=== PATIENT | female | born 1960 | race African-American/Black ===

== ENCOUNTER 2017-03-24 21:06 | Emergency (ER) | payer OTHER ==
[~2017-03-24] VITALS: Ht 167.6 cm; Wt 75.3 kg
[2017-03-24 21:11] VITALS: BP 120/78
[2017-03-24] MEDS ORDERED: METF500T PO (21:47)
--- NOTE | 2017-03-24 22:04 | NUR ---
PT TAKEN TO BED EDGI
--- NOTE | 2017-03-24 22:15 | NUR ---
Dr. Jimenez evaluating patient at bedside.
--- NOTE | 2017-03-24 22:22 | NUR ---
56/F c/o headache to right temporal side, stabbing, constant, 10/10. Pt also c/o cough, nausea, denies vomiting. Lungs clear bilaterally. Pt states the headache is worse when she changes positions suddenly. AOX4, clear speech. Non productive cough noted. Afebrile. VSS. Hx HTN, DM. Friend at bedside. Pt states she had a mass removed from her back a week ago and is also c/o pain to surgery site.
[2017-03-24] MEDS ORDERED: MORPHINE SULFATE 4 MG/ML SYR IVP ONE (22:25)
[2017-03-24] MEDS ORDERED: ONDANSETRON 4 MG/2 ML VIAL IVP ONE (22:25)
--- NOTE | 2017-03-24 22:32 | NUR ---
X-Ray at bedside.
--- NOTE | 2017-03-24 23:03 | NUR ---
Pt ambulated to restroom to provide UA.
[2017-03-24 23:07] LABS: BASOPHILS # (AUTO) 0.3 K/uL (0.00-0.22); BASOPHILS % (AUTO) 2.4 % (0.0-2.0); EOSINOPHILS # (AUTO) 0.1 K/uL (0-0.4); EOSINOPHILS % (AUTO) 0.8 % (0.0-4.0); HEMATOCRIT 31.2 % (36-48); HEMOGLOBIN 10.4 g/dL (12.0-16.0); LYMPHOCYTES # (AUTO) 1.9 K/uL (2.5-16.5); LYMPHOCYTES % (AUTO) 15.7 % (20.5-51.1); MEAN CORPUSCULAR HEMOGLOBIN 29 pg (27-31); MEAN CORPUSCULAR HGB CONC 33 g/dL (33-37); MEAN CORPUSCULAR VOLUME 88 fL (80-94); MONOCYTES # (AUTO) 1.1 K/uL (0.8-1.0); MONOCYTES % (AUTO) 8.5 % (1.7-9.3); NEUTROPHILS % (AUTO) 72.6 % (42.2-75.2); PLATELET COUNT (AUTO) 271 K/uL (140-450); RED BLOOD CELL COUNT(AUTO) 3.56 MIL/uL (4.20-5.40); RED CELL DISTRIBUTION WIDTH 13.1 % (11.6-13.7); WHITE BLOOD COUNT (AUTO) 12.4 K/uL (4.8-10.8)
--- NOTE | 2017-03-24 23:19 | NUR ---
PT TAKEN TO CT
[2017-03-24 23:25] LABS: ALBUMIN 3.7 g/dL (3.4-5.0); ANION GAP 14.8 (8-16); CARBON DIOXIDE 24.9 mmol/L (21-32); CREATININE 0.8 mg/dL (0.6-1.3); TOTAL BILIRUBIN 1.2 mg/dL (0.0-1.0)
--- NOTE | 2017-03-24 23:27 | NUR ---
Pt returned from CT and placed in GI
[2017-03-24 23:29] LABS: POTASSIUM 2.7 mmol/L (3.5-5.1)
[2017-03-24 23:34] LABS: APPEARANCE,URINE SL CLOUDY (CLEAR); BILIRUBIN,URINE NEGATIVE (NEGATIVE); BLOOD, URINE NEGATIVE (NEGATIVE); COLOR,URINE YELLOW (YELLOW); LEUKOCYTE ESTERASE ,URINE 1+ (NEGATIVE); NITRITE, URINE NEGATIVE (NEGATIVE); UGLUCOSE NEGATIVE (NEGATIVE)
--- NOTE | 2017-03-24 23:34 | NUR ---
Pt c/o 04/14, no improvement after medications. Dr. Jimenez made aware.
[2017-03-24] MEDS ORDERED: KCL 20 MEQ/WATER INJ PREMIX 100 ML IV ONE (23:35)
[2017-03-24 23:45] LABS: CREATINE KINASE MB 1.8 ng/mL (0-3.6)
[2017-03-24 23:47] LABS: RBC,URINE 0-5 (RARE) /HPF (0-5)
[2017-03-25] MEDS ORDERED: POTASSIUM CHLORIDE 10 MEQ TABER PO ONE (00:05)
[2017-03-25] MEDS ORDERED: KETOROLAC 30 MG/ML VIAL IVP ONE (00:20)
[2017-03-25] MEDS ORDERED: cefTRIAXone 1,000 MG in LIDOCAINE 1% ED 2.1 ML IM ONE (00:20)
--- NOTE | 2017-03-25 00:53 | NUR ---
IV removed, catheter intact and site benign. Applied folded 4x4 gauze and tape to stop bleeding.
[2017-03-25 01:00] VITALS: BP 139/79
--- NOTE | 2017-03-25 01:00 | NUR ---
Patient discharged with v/s stable. Written and verbal after care instructions given and explained. Patient alert, oriented and verbalized understanding of instructions. Ambulatory with steady gait. All questions addressed prior to discharge. ID band removed. Patient advised to follow up with PMD. Rx of [place] 5mg-325mg, Potassium Chloride 20 mEq, and Levaquin 500mg given. Patient educated on indication of medication including possible reaction and side effects. Opportunity to ask questions provided and answered.
== END 2017-03-25 01:00 | disposition home or self-care (01) ==
LOC: MED 21:06
DX: J18.9 Pneumonia, unspecified organism (principal); E87.6 Hypokalemia; E11.9 Type 2 diabetes mellitus without complications; I10 Essential (primary) hypertension; F17.210 Nicotine dependence, cigarettes, uncomplicated
CPT/HCPCS: 36415; 70450; 71010; 80053; 81001; 82550; 82553; 82948; 84484; 85025; 87086; 93005; 96372; 96374; 96375; 99285; J0696; J1885; J2001; J2270; J2405; J3480; J7030; Q0092

== ENCOUNTER 2018-06-23 14:49 | Emergency (ER) | payer OTHER ==
[~2018-06-23] VITALS: Ht 167.6 cm; Wt 70.8 kg
[~2018-06-23 14:49] MED LIST: METF500T PO
[2018-06-23 14:55] VITALS: BP 126/73
--- NOTE | 2018-06-23 15:04 | NUR ---
Patient ambulated to bed 5. RN evaluating patient at bedside.
--- NOTE | 2018-06-23 15:27 | NUR ---
Dr. Andrews evaluating patient at bedside.
--- NOTE | 2018-06-23 15:43 | NUR ---
BLOOD DRAW TAKEN TO LAB AT THIS TIME.
--- NOTE | 2018-06-23 15:44 | NUR ---
BIB SELF C/O SORE THROAT X 3 DAYS. PT STATES SHE ALSO HAS COUGH WITH TIGHTNESS AT THE CHEST. -N/V/D. DENIES N/V/D; SKIN IS PINK/WARM/DRY; AAOX4 WITH EVEN AND STEADY GAIT; LUNGS CLEAR BL; HR EVEN AND REGULAR; PT DENIES ANY FEVER, CP, SOB, AT THIS TIME; PATIENT STATES PAIN OF 0/10 AT THIS TIME; VSS; PATIENT POSITIONED FOR COMFORT; HOB ELEVATED; BEDRAILS UP X2; BED DOWN. ER MD MADE AWARE OF PT STATUS.
[2018-06-23] MEDS ORDERED: NACL 0.9% 1,000 ML IV ONE ×2 (15:45→17:20)
[2018-06-23 16:11] LABS: BASOPHILS % (AUTO) 0.3 % (0.0-2.0); EOSINOPHILS # (AUTO) 0.1 K/uL (0-0.4); EOSINOPHILS % (AUTO) 0.9 % (0.0-4.0); HEMATOCRIT 35.8 % (36-48); HEMOGLOBIN 11.9 g/dL (12.0-16.0); LYMPHOCYTES # (AUTO) 1.8 K/uL (2.5-16.5); LYMPHOCYTES % (AUTO) 26.2 % (20.5-51.1); MEAN CORPUSCULAR HEMOGLOBIN 29 pg (27-31); MEAN CORPUSCULAR HGB CONC 33 g/dL (33-37); MEAN CORPUSCULAR VOLUME 87.9 fL (80-94); MONOCYTES # (AUTO) 0.4 K/uL (0.8-1.0); MONOCYTES % (AUTO) 6.2 % (1.7-9.3); NEUTROPHILS # (AUTO) 4.6 K/uL (1.8-7.7); NEUTROPHILS % (AUTO) 66.4 % (42.2-75.2); PLATELET COUNT (AUTO) 169 K/uL (140-450); RED BLOOD CELL COUNT(AUTO) 4.08 MIL/uL (4.20-5.40); RED CELL DISTRIBUTION WIDTH 13.4 % (11.6-13.7)
[2018-06-23 16:20] LABS: ALBUMIN 3.8 g/dL (3.4-5.0); ANION GAP 11.8 (8-16); CARBON DIOXIDE 28.4 mmol/L (21-32); CREATININE 1.2 mg/dL (0.6-1.3); POTASSIUM 4.2 mmol/L (3.5-5.1); TOTAL BILIRUBIN 1.2 mg/dL (0.0-1.0)
[2018-06-23] MEDS ORDERED: INSULIN REGULAR, HUMAN 100 UNIT/ML VIAL SUBQ ONE ×2 (17:20→18:40)
--- NOTE | 2018-06-23 18:34 | NUR ---
Dr. Andrews re-evaluating patient at bedside.
[2018-06-23 19:58] VITALS: BP 131/86
--- NOTE | 2018-06-23 19:58 | NUR ---
Patient discharged with v/s stable. Written and verbal after care instructions given and explained. Patient alert, oriented and verbalized understanding of instructions. Ambulatory with steady gait. All questions addressed prior to discharge. ID band removed. Patient advised to follow up with PMD. Rx of Naprosyn and Tessalon given. Patient educated on indication of medication including possible reaction and side effects. Opportunity to ask questions provided and answered.
== END 2018-06-23 19:58 | disposition home or self-care (01) ==
LOC: MED 14:49
DX: E11.9 Type 2 diabetes mellitus without complications (principal); B34.9 Viral infection, unspecified; I10 Essential (primary) hypertension; F17.200 Nicotine dependence, unspecified, uncomplicated; Z79.84 Long term (current) use of oral hypoglycemic drugs
CPT/HCPCS: 36415; 71045; 80053; 81002; 82948; 83605; 85025; 87040; 87804; 93005; 96360; 96361; 96372; 99284; J1815; J7030; Q0092

== ENCOUNTER 2019-06-09 21:54 | Emergency (ER) | payer OTHER ==
[~2019-06-09 21:54] MED LIST changes: +INSU-1163 SQ; +INSU100S22 SUBQ
[2019-06-12 20:00] LABS: POTASSIUM 4.1 mmol/L (3.5-5.1)
[2019-06-12 20:01] LABS: ANION GAP 12.7 (8-16); CARBON DIOXIDE 27.4 mmol/L (21-32)
[2019-06-12 20:02] LABS: CREATININE 0.9 mg/dL (0.6-1.3); TOTAL BILIRUBIN 0.7 mg/dL (0.0-1.0)
[2019-06-12 20:03] LABS: ALBUMIN 3.7 g/dL (3.4-5.0); CORRECTED WHITE BLOOD COUNT 5.2 K/uL (4.5-11.0); WHITE BLOOD COUNT (AUTO) 5.2 K/uL (4.8-10.8)
[2019-06-12 20:04] LABS: EOSINOPHILS % (AUTO) 1.8 % (0.0-4.0); HEMATOCRIT 36.7 % (36-48); HEMOGLOBIN 12.3 g/dL (12.0-16.0); LYMPHOCYTES % (AUTO) 26.2 % (20.5-51.1); MEAN CORPUSCULAR HEMOGLOBIN 29 pg (27-31); MEAN CORPUSCULAR HGB CONC 34 g/dL (33-37); MEAN CORPUSCULAR VOLUME 86.1 fL (80-94); MONOCYTES % (AUTO) 5.5 % (1.7-9.3); NEUTROPHILS % (AUTO) 65.9 % (42.2-75.2); PLATELET COUNT (AUTO) 190 K/uL (140-450); RED BLOOD CELL COUNT(AUTO) 4.26 MIL/uL (4.20-5.40)
[2019-06-12 20:05] LABS: BASOPHILS % (AUTO) 0.6 % (0.0-2.0); EOSINOPHILS # (AUTO) 0.1 K/uL (0-0.4); LYMPHOCYTES # (AUTO) 1.4 K/uL (2.5-16.5); MONOCYTES # (AUTO) 0.3 K/uL (0.8-1.0); NEUTROPHILS # (AUTO) 3.4 K/uL (1.8-7.7)
== END 2019-06-10 04:12 | disposition home or self-care (01) ==
LOC: MED 21:54
DX: R73.9 Hyperglycemia, unspecified (principal); I10 Essential (primary) hypertension; F17.210 Nicotine dependence, cigarettes, uncomplicated; E11.9 Type 2 diabetes mellitus without complications; Z79.84 Long term (current) use of oral hypoglycemic drugs; Z79.899 Other long term (current) drug therapy
CPT/HCPCS: 36415; 80053; 81002; 83690; 85025; 99283

== ENCOUNTER 2019-06-17 16:42 | Emergency (ER) | payer OTHER ==
[~2019-06-17] VITALS: Ht 167.6 cm; Wt 68.9 kg
[2019-06-17 17:15] VITALS: BP 108/63
--- NOTE | 2019-06-17 17:15 | NUR ---
TO BED # 11 AMBULATORY
[2019-06-17] MEDS ORDERED: NACL 0.9% 1,000 ML IV ONE (17:25)
--- NOTE | 2019-06-17 17:47 | NUR ---
LAB AT BEDSIDE
[2019-06-17 17:55] LABS: BASOPHILS % (AUTO) 0.6 % (0.0-2.0); EOSINOPHILS # (AUTO) 0.1 K/uL (0-0.4); EOSINOPHILS % (AUTO) 1.3 % (0.0-4.0); HEMATOCRIT 37.8 % (36-48); HEMOGLOBIN 12.6 g/dL (12.0-16.0); LYMPHOCYTES % (AUTO) 30.4 % (20.5-51.1); MEAN CORPUSCULAR HEMOGLOBIN 29 pg (27-31); MEAN CORPUSCULAR HGB CONC 33 g/dL (33-37); MEAN CORPUSCULAR VOLUME 86.6 fL (80-94); MONOCYTES # (AUTO) 0.3 K/uL (0.8-1.0); NEUTROPHILS # (AUTO) 4.1 K/uL (1.8-7.7); NEUTROPHILS % (AUTO) 62.7 % (42.2-75.2); PLATELET COUNT (AUTO) 229 K/uL (140-450); RED BLOOD CELL COUNT(AUTO) 4.37 MIL/uL (4.20-5.40); RED CELL DISTRIBUTION WIDTH 13.2 % (11.6-13.7); WHITE BLOOD COUNT (AUTO) 6.6 K/uL (4.8-10.8)
--- NOTE | 2019-06-17 18:01 | NUR ---
IV INSERTED AND BOLUS STARTED
--- NOTE | 2019-06-17 18:05 | NUR ---
PT AMB TO RESTROM WITH STEADY GAIT
[2019-06-17 18:23] LABS: ACETONE, SERUM NEGATIVE (NEGATIVE)
--- NOTE | 2019-06-17 18:26 | NUR ---
C/O HIGH BLOOD SUGAR 547MG/DL UPON TRIAGE. WAS SEEN BY PMD WITH REREFERRAL LETTER TO GO TO ER. PT ADDS DRY MOUTH, DYSURIA 7/10, AND WHITE VAGINAL DISCHARGE. DENIES AB OR BACK PAIN, SOB, FEVER, CHILLS, OR CP. PT ALERT AND AWAKE. HR 100. AMBULATORY WITH STEADY GAIT. BED IS DOWN, LOCKED, BED RAIL X 1 PT REPORTS SHE IS COMPLIANT WITH MEDICATIONS PMH- DM
--- NOTE | 2019-06-17 18:36 | NUR ---
ACCU CHECK [id number]
--- NOTE | 2019-06-17 18:38 | NUR ---
NADR TO NS, PAIN 5/10.
[2019-06-17 18:40] LABS: ALBUMIN 3.6 g/dL (3.4-5.0); ANION GAP 16.7 (8-16); ASPARTATE AMINOTRANSFERASE 20 U/L (15-37); CHLORIDE 98 mmol/L (98-107); CREATININE 0.8 mg/dL (0.6-1.3); GFR ARICAN-AMERICAN 95 mL/min (>90); POTASSIUM 3.7 mmol/L (3.5-5.1); SODIUM SERUM 138 mmol/L (136-145); UREA NITROGEN, BLOOD 7 mg/dL (7-18)
[2019-06-17 18:44] LABS: GLUCOSE 492 mg/dL (74-106)
[2019-06-17] MEDS ORDERED: INSULIN REGULAR, HUMAN 100 UNIT/ML VIAL IVP ONE (18:50)
[2019-06-17 19:01] LABS: TOTAL BILIRUBIN 0.7 mg/dL (0.0-1.0)
[2019-06-17 19:15] LABS: APPEARANCE,URINE CLEAR (CLEAR); BILIRUBIN,URINE NEGATIVE (NEGATIVE); BLOOD, URINE NEGATIVE (NEGATIVE); COLOR,URINE YELLOW (YELLOW); LEUKOCYTE ESTERASE ,URINE NEGATIVE (NEGATIVE); NITRITE, URINE NEGATIVE (NEGATIVE); UGLUCOSE 3+ (NEGATIVE)
--- NOTE | 2019-06-17 19:17 | NUR ---
report given to jordi rn, pending insulin, pt alert and awake
[2019-06-17 19:40] VITALS: BP 116/76
--- NOTE | 2019-06-17 19:40 | NUR ---
PT DISCHARGED WITH PAPERWORK. NO MEDICATION RX PROVIDED. EDUCATED PT REGARDING D/C DIAGNOSIS AND INSTRUCTIONS. PT VERBALIZED UNDERSTANDING. TOLD PT TO FOLLOW UP WITH PCP AND WHEN TO RETURN TO ED. PT AT STABLE CONDITION. ALL QUESTIONS ANSWERED.
== END 2019-06-17 19:40 | disposition home or self-care (01) ==
LOC: MED 16:42
DX: E11.65 Type 2 diabetes mellitus with hyperglycemia (principal); I10 Essential (primary) hypertension; Z79.4 Long term (current) use of insulin; Z79.899 Other long term (current) drug therapy
CPT/HCPCS: 36415; 71045; 80053; 81003; 82009; 82948; 85025; 96361; 96374; 99284; J1815; Q0092

== ENCOUNTER 2021-10-18 12:33 | Emergency (ER) | payer OTHER ==
[~2021-10-18] VITALS: Ht 167.6 cm; Wt 76.7 kg
[2021-10-18 12:34] VITALS: BP 131/76
--- NOTE | 2021-10-18 12:39 | NUR ---
Patient ambulated with steady gait to bed 9.
[2021-10-18] MEDS ORDERED: KETOROLAC 30 MG/ML VIAL IM ONE (12:50)
--- NOTE | 2021-10-18 12:50 | NUR ---
PAULINE Oconnell is evaluating patient at bedside
--- NOTE | 2021-10-18 13:01 | NUR ---
61 y/o female, c/o right hand pain radiates to right shoulder for 3 days. denies any over exertion or injury to area. Patient states 10/10, sharp/constant, radiating from R palm up to right shoulder. Worsens with movement. Denies medicatoins prior to arrival. Denies trauma, fever, chills, loss of sensation. Bed locked in lowest position, side rails x 1. pmh: dm2 nka med: denies
[2021-10-18] MEDS ORDERED: ACET-8386 PO (13:18)
--- NOTE | 2021-10-18 13:28 | NUR ---
Patient discharged with v/s stable. Written and verbal after care instructions given and explained. Patient alert, oriented and verbalized understanding of instructions. Ambulatory with steady gait. All questions addressed prior to discharge. ID band removed. Patient advised to follow up with PMD. Rx of HYDROCODONE-ACETAMINOPHEN 5-325 given. Patient educated on indication of medication including possible reaction and side effects. Opportunity to ask questions provided and answered.
[2021-10-18 13:29] VITALS: BP 131/76
== END 2021-10-18 13:28 | disposition home or self-care (01) ==
LOC: MED 12:33
DX: M79.641 Pain in right hand (principal); E11.9 Type 2 diabetes mellitus without complications; I10 Essential (primary) hypertension; Z79.4 Long term (current) use of insulin; Z79.899 Other long term (current) drug therapy
CPT/HCPCS: 96372; 99283; J1885

== ENCOUNTER 2022-02-04 13:27 | Emergency (ER) | payer OTHER ==
[~2022-02-04] VITALS: Ht 167.6 cm; Wt 65.8 kg
[~2022-02-04 13:27] MED LIST changes: +ACET-8386 PO; +METF-346 PO; -METF500T PO
[2022-02-04 14:02] VITALS: BP 146/78
[2022-02-04] MEDS ORDERED: NACL 0.9% 1,000 ML IV ONE ×2 (14:40→17:30)
[2022-02-04 15:30] LABS: BASOPHILS % (AUTO) 0.4 % (0.0-2.0); EOSINOPHILS # (AUTO) 0.1 K/uL (0-0.4); EOSINOPHILS % (AUTO) 0.9 % (0.0-4.0); HEMATOCRIT 37.5 % (36-48); HEMOGLOBIN 12.4 g/dL (12.0-16.0); LYMPHOCYTES # (AUTO) 1.4 K/uL (2.5-16.5); LYMPHOCYTES % (AUTO) 26.4 % (20.5-51.1); MEAN CORPUSCULAR HEMOGLOBIN 29 pg (27-31); MEAN CORPUSCULAR HGB CONC 33 g/dL (33-37); MEAN CORPUSCULAR VOLUME 87.6 fL (80-94); MONOCYTES # (AUTO) 0.3 K/uL (0.8-1.0); MONOCYTES % (AUTO) 5.1 % (1.7-9.3); NEUTROPHILS # (AUTO) 3.6 K/uL (1.8-7.7); NEUTROPHILS % (AUTO) 67.2 % (42.2-75.2); PLATELET COUNT (AUTO) 238 K/uL (140-450); RED BLOOD CELL COUNT(AUTO) 4.28 MIL/uL (4.20-5.40); RED CELL DISTRIBUTION WIDTH 13.8 % (11.6-13.7); WHITE BLOOD COUNT (AUTO) 5.4 K/uL (4.8-10.8)
[2022-02-04 15:49] LABS: ALBUMIN 3.9 g/dL (3.4-5.0); ANION GAP 12.2 (8-16); CARBON DIOXIDE 27.9 mmol/L (21-32); CREATININE 0.8 mg/dL (0.6-1.3); POTASSIUM 4.1 mmol/L (3.5-5.1); TOTAL BILIRUBIN 0.7 mg/dL (0.0-1.0)
[2022-02-04] MEDS ORDERED: INSULIN REGULAR, HUMAN 100 UNIT/ML VIAL SUBQ ONE (17:30)
[2022-02-04] MEDS ORDERED: KETOROLAC 15 MG/ML VIAL IVP ONE (17:30)
[2022-02-04] MEDS ORDERED: KETOROLAC 15 MG/ML VIAL ONE (18:53)
--- NOTE | 2022-02-04 19:10 | NUR ---
61/F PRESENTS TO ED WITH C/O HIGH BLOOD SUGAR READING OF 338 AT HOME. PATIENT REPORTED FEELING LIGHT HEADED AND HAVING URINARY URGENCY X3 DAYS. PATIENT STATES EPISODES OF BLURRED VISION, LOWER ABD PAIN AND HEADACHE. BLOOD SUGAR IN TRIAGE 456.
--- NOTE | 2022-02-04 20:21 | NUR ---
Dr. Andrews explained results and treatment plans .
[2022-02-04 20:56] VITALS: BP 132/78
--- NOTE | 2022-02-04 20:56 | NUR ---
Patient discharged with v/s stable. Written and verbal after care instructions given and explained. Patient verbalized understanding. Ambulatory with steady gait. All questions addressed prior to discharge. Advised to follow up with PMD.
== END 2022-02-04 20:56 | disposition home or self-care (01) ==
LOC: MED 13:27
DX: E11.65 Type 2 diabetes mellitus with hyperglycemia (principal); I10 Essential (primary) hypertension; F32.A Depression, unspecified; E78.00 Pure hypercholesterolemia, unspecified; F17.200 Nicotine dependence, unspecified, uncomplicated; Z79.4 Long term (current) use of insulin; Z79.899 Other long term (current) drug therapy
CPT/HCPCS: 36415; 80053; 81002; 82803; 82948; 85025; 96361; 96374; 96375; 99284; J1815; J1885; J7030

== ENCOUNTER 2022-02-23 15:39 | Emergency (ER) | payer OTHER ==
[~2022-02-23] VITALS: Ht 167.6 cm; Wt 63.0 kg
[2022-02-23 16:02] VITALS: BP 129/75
--- NOTE | 2022-02-23 16:26 | NUR ---
NO NURSING INTERVENTIONS NEEDED, SEEN & TREATED BY PAULINE FULTON.
[2022-02-23] MEDS ORDERED: FLUO40CA6 PO (16:41)
[2022-02-23] MEDS ORDERED: ABI10 PO (16:41)
[2022-02-23] MEDS ORDERED: THO25 PO (16:41)
== END 2022-02-23 16:55 | disposition home or self-care (01) ==
LOC: MED 15:39
DX: F20.9 Schizophrenia, unspecified (principal); Z76.0 Encounter for issue of repeat prescription; E11.9 Type 2 diabetes mellitus without complications; I10 Essential (primary) hypertension; Z79.899 Other long term (current) drug therapy; Z79.891 Long term (current) use of opiate analgesic; Z79.4 Long term (current) use of insulin
CPT/HCPCS: 99281

== ENCOUNTER 2022-06-18 13:39 | Emergency (ER) | payer OTHER ==
[~2022-06-18] VITALS: Ht 167.6 cm; Wt 67.6 kg
[~2022-06-18 13:39] MED LIST changes: +ABI10 PO; -ACET-8386 PO; +ACET-8905 PO; +FLUO40CA6 PO; +THO25 PO
[2022-06-18 13:49] VITALS: BP 121/77
[2022-06-18] MEDS ORDERED: LIDOCAINE 1% 500 MG/ 50 ML VIAL INJ ONE (14:25)
[2022-06-18] MEDS: INSULIN REGULAR, HUMAN 100 UNIT/ML VIAL SUBQ ONE ×2 (14:45→16:42)
[2022-06-18] MEDS: SULFAMETH/TRIMETH DS 800/160MG 1 TAB PO ONE (16:02)
[2022-06-18] MEDS: cephALEXin 500 MG CAP PO ONE (16:03)
[2022-06-18] MEDS: LIDOCAINE MPF 1% 10 MG/ML VIAL INJ ONE (16:04)
[2022-06-18] MEDS ORDERED: SULF-59 PO (18:11)
[2022-06-18] MEDS ORDERED: CEPH-588 PO (18:11)
[2022-06-18 18:17] VITALS: BP 111/72
== END 2022-06-18 18:17 | disposition home or self-care (01) ==
LOC: MED 13:39
DX: L02.01 Cutaneous abscess of face (principal); E11.65 Type 2 diabetes mellitus with hyperglycemia; I10 Essential (primary) hypertension; Z79.899 Other long term (current) drug therapy; Z79.4 Long term (current) use of insulin
CPT/HCPCS: 10060; 96372; 99284; J1815; J2001

== ENCOUNTER 2022-06-21 13:28 | Emergency (ER) | payer OTHER ==
[~2022-06-21] VITALS: Ht 167.6 cm; Wt 67.1 kg
[~2022-06-21 13:28] MED LIST changes: +CEPH-588 PO; +SULF-59 PO
[2022-06-21 13:32] VITALS: BP 116/45
[2022-06-21] MEDS ORDERED: BACI-416 TP (13:44)
--- NOTE | 2022-06-21 13:44 | NUR ---
BIB SELF FOR WOUND CHECK AT RIGHT FACE.BLOOD SUGAR 291 AT THIS TIME. PMH: DM
[2022-06-21 13:50] VITALS: BP 116/45
== END 2022-06-21 13:50 | disposition home or self-care (01) ==
LOC: MED 13:28
DX: L02.811 Cutaneous abscess of head [any part, except face] (principal); E11.9 Type 2 diabetes mellitus without complications; I10 Essential (primary) hypertension; Z48.01 Encounter for change or removal of surgical wound dressing; Z79.899 Other long term (current) drug therapy; Z79.4 Long term (current) use of insulin
CPT/HCPCS: 99282

== ENCOUNTER 2022-06-26 12:59 | Emergency (ER) | payer OTHER ==
[~2022-06-26] VITALS: Ht 167.6 cm; Wt 61.9 kg
[~2022-06-26 12:59] MED LIST changes: +BACI-416 TP
[2022-06-26 13:03] VITALS: BP 90/65
[2022-06-26] MEDS ORDERED: INSULIN REGULAR, HUMAN 100 UNIT/ML VIAL IVP ONE (14:25)
[2022-06-26] MEDS ORDERED: NACL 0.9% 1,000 ML IV ONE (14:25)
[2022-06-26 15:24] LABS: BASOPHILS % (AUTO) 0.2 % (0.0-2.0); EOSINOPHILS % (AUTO) 0.4 % (0.0-4.0); HEMATOCRIT 28.9 % (36-48); HEMOGLOBIN 9.7 g/dL (12.0-16.0); LYMPHOCYTES # (AUTO) 1.5 K/uL (2.5-16.5); LYMPHOCYTES % (AUTO) 15.5 % (20.5-51.1); MEAN CORPUSCULAR HEMOGLOBIN 28 pg (27-31); MEAN CORPUSCULAR HGB CONC 34 g/dL (33-37); MEAN CORPUSCULAR VOLUME 83.7 fL (80-94); MONOCYTES # (AUTO) 0.6 K/uL (0.8-1.0); MONOCYTES % (AUTO) 6.5 % (1.7-9.3); NEUTROPHILS # (AUTO) 7.6 K/uL (1.8-7.7); NEUTROPHILS % (AUTO) 77.4 % (42.2-75.2); PLATELET COUNT (AUTO) 288 K/uL (140-450); RED BLOOD CELL COUNT(AUTO) 3.45 MIL/uL (4.20-5.40); RED CELL DISTRIBUTION WIDTH 14.4 % (11.6-13.7); WHITE BLOOD COUNT (AUTO) 9.8 K/uL (4.8-10.8)
[2022-06-26 15:49] LABS: ALBUMIN 2.4 g/dL (3.4-5.0); ANION GAP 16.7 (8-16); CARBON DIOXIDE 25.1 mmol/L (21-32); CREATININE 1.1 mg/dL (0.6-1.3); POTASSIUM 4.8 mmol/L (3.5-5.1); TOTAL BILIRUBIN 0.8 mg/dL (0.0-1.0)
[2022-06-26] MEDS ORDERED: BACTO TP (16:32)
[2022-06-26] MEDS ORDERED: FERR325E14 PO (16:32)
--- NOTE | 2022-06-26 16:42 | NUR ---
IV removed, catheter intact and site benign. Applied folded 4x4 gauze and tape to stop bleeding.
[2022-06-26 16:43] VITALS: BP 114/72
--- NOTE | 2022-06-26 16:43 | NUR ---
Patient discharged with v/s stable. Written and verbal after care instructions given and explained. Patient alert, oriented and verbalized understanding of instructions. Ambulatory with steady gait. All questions addressed prior to discharge. ID band removed. Patient advised to follow up with PMD. Rx of bactroban, ferrous sulfate (sent) given. Patient educated on indication of medication including possible reaction and side effects. Opportunity to ask questions provided and answered. copy of labs given
== END 2022-06-26 16:43 | disposition home or self-care (01) ==
LOC: MED 12:59
DX: E11.65 Type 2 diabetes mellitus with hyperglycemia (principal); D64.9 Anemia, unspecified; L98.499 Non-pressure chronic ulcer of skin of other sites with unspecified severity; I10 Essential (primary) hypertension; F17.210 Nicotine dependence, cigarettes, uncomplicated; Z48.01 Encounter for change or removal of surgical wound dressing; Z79.4 Long term (current) use of insulin; Z79.899 Other long term (current) drug therapy
CPT/HCPCS: 36415; 80053; 85025; 96361; 96374; 99283; J1815; J7030

== ENCOUNTER 2024-03-20 13:11 | Emergency (ER) | payer OTHER ==
[~2024-03-20] VITALS: Ht 167.6 cm; Wt 72.6 kg
[~2024-03-20 13:11] MED LIST changes: -BACI-416 TP; +BACI-418 TP; +BACTO TP; +FERR325E14 PO
[2024-03-20 13:54] VITALS: BP 99/75; PULSE 100; RESP 16; TEMP 97.4; O2SAT 100
[2024-03-20 14:15] VITALS: O2SAT 100
[2024-03-20 14:32] LABS: BILIRUBIN,URINE NEGATIVE (NEGATIVE); BLOOD, URINE NEGATIVE (NEGATIVE); COLOR,URINE YELLOW (YELLOW); LEUKOCYTE ESTERASE ,URINE 1+ (NEGATIVE); NITRITE, URINE NEGATIVE (NEGATIVE); PROTEIN,URINE NEGATIVE (NEGATIVE); UGLUCOSE NEGATIVE (NEGATIVE)
[2024-03-20 14:37] LABS: APPEARANCE,URINE SLIGHTLY HAZY (CLEAR)
[2024-03-20 14:39] LABS: BACTERIA,URINE 1+ /HPF (None Seen)
[2024-03-20 14:40] LABS: MUCUS,URINE 1+ /LPF (None Seen); SQUAMOUS EPITHELIAL CELL,UR 4-10 (MOD) /LPF (0-3 (FEW))
[2024-03-20 15:39] LABS: BASOPHILS # (AUTO) 0.1 K/uL (0.00-0.22); BASOPHILS % (AUTO) 0.9 % (0.0-2.0); EOSINOPHILS # (AUTO) 0.1 K/uL (0-0.4); HEMATOCRIT 38.5 % (36-48); HEMOGLOBIN 12.8 g/dL (12.0-16.0); LYMPHOCYTES # (AUTO) 2.5 K/uL (2.5-16.5); LYMPHOCYTES % (AUTO) 36.4 % (20.5-51.1); MEAN CORPUSCULAR HEMOGLOBIN 32 pg (27-31); MEAN CORPUSCULAR HGB CONC 33 g/dL (33-37); MEAN CORPUSCULAR VOLUME 95.6 fL (80-94); MONOCYTES # (AUTO) 0.7 K/uL (0.8-1.0); MONOCYTES % (AUTO) 9.7 % (1.7-9.3); NEUTROPHILS # (AUTO) 3.6 K/uL (1.8-7.7); PLATELET COUNT (AUTO) 244 K/uL (140-450); RED BLOOD CELL COUNT(AUTO) 4.03 MIL/uL (4.20-5.40); RED CELL DISTRIBUTION WIDTH 16.1 % (11.6-13.7); WHITE BLOOD COUNT (AUTO) 6.9 K/uL (4.8-10.8)
[2024-03-20 15:55] LABS: ALBUMIN 3.6 g/dL (3.4-5.0); ANION GAP 14.1 (8-16); CALCIUM 8.7 mg/dL (8.5-10.1); CARBON DIOXIDE 26.1 mmol/L (21-32); CREATININE 0.9 mg/dL (0.6-1.3); POTASSIUM 3.2 mmol/L (3.5-5.1); TOTAL BILIRUBIN 0.5 mg/dL (0.0-1.0); TOTAL PROTEIN, SERUM 7.2 g/dL (6.4-8.2)
[2024-03-20] MEDS ORDERED: NITR100C7 PO (16:36)
[2024-03-20] MEDS ORDERED: FLUC200T PO (16:36)
[2024-03-20] MEDS: FLUCONAZOLE 100 MG TAB PO ONE (17:02)
[2024-03-20] MEDS: NITROFURANTOIN 100 MG CAP PO SCH (17:02)
[2024-03-20 17:04] VITALS: BP 112/72; PULSE 88; RESP 16; TEMP 97.6; O2SAT 100
== END 2024-03-20 17:04 | disposition home or self-care (01) ==
LOC: MED 13:11
DX: R30.0 Dysuria (principal); N89.8 Other specified noninflammatory disorders of vagina; Z71.6 Tobacco abuse counseling; E11.9 Type 2 diabetes mellitus without complications; I10 Essential (primary) hypertension; Z79.899 Other long term (current) drug therapy; Z79.4 Long term (current) use of insulin
CPT/HCPCS: 36415; 80053; 81001; 85025; 87086; 99283